=== PATIENT | male | born 1955 | race Caucasian/White ===

== ENCOUNTER 2024-02-07 10:06 | Day surgery (SDC) | payer MEDICARE, OTHER ==
[2024-02-07] MEDS: Polymyxin B/Trimethoprim 10 ML Bottle EYERT SCH (10:55)
[2024-02-07] MEDS: Brimonidine 0.2% Ophth Soln 5 ML Bottle EYERT SCH (10:58)
[2024-02-07] MEDS: Tropicamide 1% Ophth Soln 3 ML Bottle EYERT SCH (11:02)
[2024-02-07] MEDS: Phenylephrine 2.5% Ophth Soln 2 ML Bot EYERT SCH (11:02)
[2024-02-07] MEDS: Tetracaine HCl/PF 0.5% 4 ML Bottle EYEBOTH SCH (11:57)
[2024-02-07] MEDS: Lidocaine 1% PF 2 ML SDV INJECT SCH (12:26)
[2024-02-07] MEDS: Cefuroxime 10 MG/ML SYRINGE EYERT SCH (12:38)
[2024-02-07] MEDS: Pilocarpine 4% Ophth Soln 15 ML Bot EYERT SCH (12:43)
== END 2024-02-07 12:53 | disposition home or self-care (01) ==
LOC: JD.SDS 10:06
PROVIDERS: ATTEND Ophthalmology
DX: E11.36 Type 2 diabetes mellitus with diabetic cataract (principal); H25.812 Combined forms of age-related cataract, left eye; H35.373 Puckering of macula, bilateral; H02.831 Dermatochalasis of right upper eyelid; H02.834 Dermatochalasis of left upper eyelid; H11.153 Pinguecula, bilateral; I10 Essential (primary) hypertension; Z87.891 Personal history of nicotine dependence; Z79.84 Long term (current) use of oral hypoglycemic drugs; Z79.899 Other long term (current) drug therapy
CPT/HCPCS: 66984; A9270; J0697; J3490

== ENCOUNTER 2024-03-13 07:11 | Day surgery (SDC) | payer MEDICARE ==
[~2024-03-13 07:11] MED LIST: Brimonidine 0.2% Ophth Soln 5 ML Bottle EYELF SCH
[2024-03-13] MEDS: Polymyxin B/Trimethoprim 10 ML Bottle EYELF SCH (07:40)
[2024-03-13] MEDS: Phenylephrine 2.5% Ophth Soln 2 ML Bot EYELF SCH (07:47)
[2024-03-13] MEDS: Tetracaine HCl/PF 0.5% 4 ML Bottle EYEBOTH SCH (07:47)
[2024-03-13] MEDS: Lidocaine 1% PF 2 ML SDV INJECT SCH (07:47)
[2024-03-13] MEDS: Brimonidine 0.2% Ophth Soln 5 ML Bottle EYELF SCH (07:48)
[2024-03-13] MEDS: Cefuroxime 10 MG/ML SYRINGE EYELF SCH (07:48)
[2024-03-13] MEDS: Pilocarpine 4% Ophth Soln 15 ML Bot EYELF SCH (07:48)
[2024-03-13] MEDS: Tropicamide 1% Ophth Soln 3 ML Bottle EYELF SCH (08:01)
== END 2024-03-13 09:27 | disposition home or self-care (01) ==
LOC: JD.SDS 07:11
PROVIDERS: ATTEND Ophthalmology
DX: E11.36 Type 2 diabetes mellitus with diabetic cataract (principal); H25.812 Combined forms of age-related cataract, left eye; H21.81 Floppy iris syndrome; H21.42 Pupillary membranes, left eye; I10 Essential (primary) hypertension; Z79.82 Long term (current) use of aspirin; Z79.84 Long term (current) use of oral hypoglycemic drugs; Z79.899 Other long term (current) drug therapy
CPT/HCPCS: 66982; A9270; J0697; J3490